=== PATIENT | female | born 1995 | race Caucasian/White ===

== ENCOUNTER 2020-02-09 05:32 | Inpatient (IN) | payer OTHER ==
[~2020-02-09] VITALS: Ht 165.1 cm; Wt 105.5 kg
[2020-02-09] VITALS (11 sets, daily range): BP systolic 115–132; BP diastolic 66–83
[2020-02-09] MEDS ORDERED: LR 1,000 ML IV SCH (06:08)
[2020-02-09] MEDS ORDERED: LACTATED RINGER'S 1000 ML IV ONE (06:15)
[2020-02-09] MEDS ORDERED: OXYTOCIN 30 UNITS IN 0.9% NaCl 500ML IV BAG (J2590) As Ordered ONE (06:17)
[2020-02-09 06:25] LABS: HEMATOCRIT 37.2 % (36.0-47.0); HEMOGLOBIN 12.8 g/dl (12.0-15.5); MEAN CORPUSCULAR HGB CONC 34.4 g/dl (32.0-36.5); MEAN CORPUSCULAR VOLUME 90.1 fl (80.0-96.0); PLATELET COUNT, AUTOMATED 324 10^3/uL (150-450); RED BLOOD COUNT 4.13 10^6/uL (4.00-5.40); WHITE BLOOD COUNT 10.8 10^3/uL (4.0-10.0)
[2020-02-09 06:50] LABS: CORD GAS HCO3 A 25.7 MEQ/L; CORD GAS O2 SAT A 20.9 %; CORD GAS PCO2 A 60.6 mmHg; CORD GAS PH A 7.245 UNITS; CORD GAS PO2 A 13.9 mmHg; CORD GAS TCO2 A 27.5 MEQ/L
[2020-02-09 06:52] LABS: CORD GAS ABE V -4.1; CORD GAS HCO3 V 22.6 MEQ/L; CORD GAS O2 SAT V 36.6 %; CORD GAS PCO2 V 46.7 mmHg; CORD GAS PH V 7.303 UNITS; CORD GAS PO2 V 18.6 mmHg; CORD GAS SBC V 19.4 MEQ/L; CORD GAS TCO2 V 24.1 MEQ/L
[2020-02-09] MEDS ORDERED: MEASLES,MUMPS,RUBELLA VACCINE INJ (MMR-II) (90707) SC SCH (07:00)
[2020-02-09] MEDS ORDERED: RHOGAM 300 MCG (1500 IU) INJ (J2790) IM SCH (07:00)
[2020-02-09] MEDS ORDERED: MOM 30ML SUSPENSION UDC PO PRN (07:00)
[2020-02-09] MEDS ORDERED: METHYLERGONOVINE MALEATE 0.2 MG TAB PO PRN (07:00)
[2020-02-09] MEDS ORDERED: ACETAMINOPHEN 500 MG TAB PO PRN (07:00)
[2020-02-09] MEDS ORDERED: DOCUSATE SODIUM 100 MG CAP PO PRN (07:00)
[2020-02-09] MEDS ORDERED: DIBUCAINE 1% OINTMENT 30GM TOP PRN (07:00)
[2020-02-09] MEDS ORDERED: OXYTOCIN DRIP 30 UNITS in IV 1 EA IV ONE (07:00)
[2020-02-09] MEDS ORDERED: ANUSOL HC CREAM 30GM TOP PRN (07:00)
[2020-02-09] MEDS ORDERED: ACETAMINOPHEN TAB 650MG DOSE (2X325MG) PO PRN (07:00)
[2020-02-09] MEDS ORDERED: OXYTOCIN INJ 10 UNITS/ML VIAL (J2590) IV ONE (07:00)
--- NOTE | 2020-02-09 07:39 | HPE ---
DATE OF ADMISSION: 02/09/2020 This lady is a 24-year-old, 1, para 0, last menstrual period (LMP) 05/09/2019, expected date of confinement (EDC) 02/19/2020 at 38 and 4 weeks of gestation admitted in active labor fully dilated. Her risk factor is her body mass index (BMI) is 30. Labs: O+. HIV negative. Hepatitis negative. RPR negative. Rubella immune. Varicella immune. Pap normal. Urine was positive. Gonorrhea and chlamydia were negative. 1-hour glucose early was 106, 28-week glucose was 102. GBS is negative. On admission, blood pressure is 119/68, respirations 18, pulse 86. On examination, she is in active labor, fully dilated, clear liquid. Delivered precipitously a live female , 6 pounds 11 ounces, 3030 grams, Apgars of 9 and 9 at one and five minutes respectively. Placenta delivered spontaneously thereafter. Three-vessel and the cord, membranes and tissues intact. The patient had a small first-degree tear which was oversewn in the usual fashion. Hemoglobin was 12.8, hematocrit 37.2 and platelets were 324. Arterial blood gas 7.24, base excess -3; venous pH 7.30, base excess -4.1. The patient and baby tolerated the procedure well.
--- NOTE | 2020-02-09 07:42 | DN ---
DATE: 02/09/2020 This lady is a 24-year-old, 1, para 0, at 38 and 4 weeks of gestation who came in, in active labor, fully dilated, and delivered a live female infant weighing 3030 grams, Apgars of 9 and 9 at one and five minutes respectively, 6 pounds 11 ounces. Arterial and venous pH were performed. Placenta delivered spontaneously thereafter. Three-vessel and the cord, membranes and tissues intact. On examination, she had a small first-degree tear in the left vaginal wall repaired in usual fashion with a 2-0 and [id number]. Uterus contracted well under Pitocin. Anterior, posterior and lateral robledo were intact. Sphincter was tight. The patient and baby tolerating the procedure well.
[2020-02-09] MEDS: PRENATAL VITAMINS CHEWABLE TABLET PO SCH (09:00)
[2020-02-09] MEDS: NAPROXEN 250 MG TAB PO SCH ×2 (09:00→21:00)
[2020-02-09] MEDS ORDERED: OXYTOCIN INJ 10 UNITS/ML VIAL (J2590) As Ordered ONE (18:09)
[2020-02-10 06:00] VITALS: BP 109/64
[2020-02-10 06:51] LABS: HEMATOCRIT 33.1 % (36.0-47.0); HEMOGLOBIN 11.3 g/dl (12.0-15.5); MEAN CORPUSCULAR HEMOGLOBIN 31.6 pg (27.0-33.0); MEAN CORPUSCULAR HGB CONC 34.1 g/dl (32.0-36.5); MEAN CORPUSCULAR VOLUME 92.5 fl (80.0-96.0); PLATELET COUNT, AUTOMATED 236 10^3/uL (150-450); RED BLOOD COUNT 3.58 10^6/uL (4.00-5.40); WHITE BLOOD COUNT 10.7 10^3/uL (4.0-10.0)
[2020-02-10 09:00] VITALS: BP 109/64
[2020-02-10] MEDS: PRENATAL VITAMINS CHEWABLE TABLET PO SCH (09:00)
[2020-02-10] MEDS: NAPROXEN 250 MG TAB PO SCH (09:00)
--- NOTE | 2020-02-10 10:09 | IPNPDOC ---
Progress Note Date of Service: Feb 10, 2020 Day#: 1 Progress Note PPD 1 SUBJECT: Joan is a 24yo [id number] s/p uncomplicated at 38+wk after presenting in active labor, having a 1mll with repair, doing well day # 1. She has been ambulating, voiding spontaneously without issue and tolerating regular diet. Breast feeding without issue. Reports lochia is like a normal vimal od. No f/c/n/v/CP/SOB. OBJECTIVE: VITAL SIGNS: Within normal limits, afebrile. Alert and oriented times three. Abdomen: Fundus firm at U-2. Soft, NTTP. Extremities: no pain with palpation of calves, trace pedal edema ASSESSMENT: Joan is a 24yo [id number] s/p uncomplicated at 38+wk after pre senting in active labor, having a 1mll with repair, doing well day # 1. Vitals within normal limits, afebrile, hemodynamically stable with no evidence of infection. PLAN: 1. Discharge to home today. 2. Tylenol and Motrin for pain. 3. Encourage breast feeding 4. Will further discuss contraception at 6wk PP visit 5. Routine PP visit in 6 weeks 6. Discussed return precautions at length. 7. No heavy lifting and vaginal rest [address] Angely Khanna MD VS, I&O, 24H, Fishbone Vital Signs/I&O Vital Signs Date Time Temp Pulse Resp B/P (MAP) Pulse Ox O2 Delivery O2 Flow Rate FiO2 02/10/20 06:00 99.2 77 18 109/64 (79) 99 Room Air I&O- Last 24 Hours up to 6 AM 02/10/20 06:00 Intake Total 2000 ml Output Total 900 ml Balance 1100 ml Laboratory Data 24H LABS Laboratory Tests 2 02/10/20 06:25: Nucleated Red Blood Cells % (auto) 0.0 CBC/BMP Laboratory Tests 02/10/20 06:25 Angely Khanna MD Feb 10, 2020 10:09
[2020-02-10] MEDS ORDERED: DOCU100C16 PO (10:10)
[2020-02-10] MEDS ORDERED: DIBU10OI TOP (10:10)
[2020-02-10] MEDS ORDERED: ACET-683 PO (10:10)
--- NOTE | 2020-02-10 10:13 | DS.PDOC ---
Discharge Summary General Date of Admission Feb 09, 2020 at 05:51 Date of Discharge Feb 10, 2020 Discharge Summary PROCEDURES PERFORMED DURING STAY: spontaneous vaginal delivery ADMITTING DIAGNOSES: 1. Active labor at term DISCHARGE DIAGNOSES: 1. Active labor at term, delivered COMPLICATIONS/CHIEF COMPLAINT: Term . HISTORY OF PRESENT ILLNESS/HOSPITAL COURSE: Joan is a 24yo [id number] s/p uncomplicated at 38+wk after presenting in active labor, having a 1mll with repair, doing well day # 1. She had a benign course. At time of discharge, vitals were within normal limits, afebrile, hemodynamically stable with no evidence of infection. DISCHARGE MEDICATIONS: Please see below. ALLERGIES: Please see below. PHYSICAL EXAMINATION ON DISCHARGE: VITAL SIGNS: Within normal limits, afebrile. Alert and oriented times three. Abdomen: Fundus firm at U-2. Soft, NTTP. Extremities: no pain with palpation of calves, trace pedal edema LABORATORY DATA: Please see below. DIET: regular DISPOSITION: home DISCHARGE PLAN/INSTRUCTIONS: 1. Discharge to home today. 2. Tylenol and Motrin for pain. 3. Encourage breast feeding 4. Will further discuss contraception at 6wk PP visit 5. Routine PP visit in 6 weeks 6. Discussed return precautions at length. 7. No heavy lifting and vaginal rest 6 weeks DISCHARGE CONDITION: Stable TIME SPENT ON DISCHARGE: Greater than [address] Angely Khanna MD Vital Signs/I&Os Vital Signs Date Time Temp Pulse Resp B/P (MAP) Pulse Ox O2 Delivery O2 Flow Rate FiO2 02/10/20 06:00 99.2 77 18 109/64 (79) 99 Room Air I&O- Last 24 Hours up to 6 AM 02/10/20 06:00 Intake Total 2000 ml Output Total 900 ml Balance 1100 ml Laboratory Data Labs 24H Laboratory Tests 2 02/10/20 06:25: Nucleated Red Blood Cells % (auto) 0.0 CBC/BMP Laboratory Tests 02/10/20 06:25 Discharge Medications Scheduled PRN Acetaminophen (Acetaminophen) 500 Mg Tablet, 1,000 MG PO Q6HP PRN for PAIN LEVEL 6-10 Dibucaine (Dibucaine) 28 Gm Oint...g., 0 DOSE TOP Q4HP PRN for PAIN Docusate Sodium (Docusate Sodium) 100 Mg Capsule, 100 MG PO QHSP PRN for CONSTIPATION Allergies Coded Allergies: No Known Allergies (Verified Allergy, Unknown, 02/09/20) Angely Khanna MD Feb 10, 2020 10:13
== END 2020-02-10 13:47 | disposition home or self-care (01) | DRG 807 ==
LOC: M LDO 05:32 → M LDI 05:51 → M OBS 17:24
PROVIDERS: ADMIT Obstetrics & Gynecology; ATTEND Obstetrics & Gynecology
PROC: 10E0XZZ Delivery of Products of Conception, External Approach (ICD-10-PCS; principal; 2020-02-09)
PROC: 0HQ9XZZ Repair Perineum Skin, External Approach (ICD-10-PCS; 2020-02-09)
DX: O70.0 First degree perineal laceration during delivery (principal); Z37.0 Single live birth; Z3A.38 38 weeks gestation of pregnancy

== ENCOUNTER 2021-03-27 08:37 | Inpatient (IN) | payer OTHER ==
[2021-03-27] VITALS (7 sets, daily range): BP systolic 130–169; BP diastolic 69–87
[~2021-03-27] VITALS: Ht 165.1 cm; Wt 100.0 kg
[~2021-03-27 08:37] MED LIST: ACET-683 PO; DIBU28OI2 TOP; DOCU100C16 PO
[2021-03-27] MEDS ORDERED: OXYTOCIN INJ 10 UNITS/ML VIAL (J2590) IM PRN (08:55)
--- NOTE | 2021-03-27 09:00 | HPEPDOC ---
Obstetrical History & Physical General Date of Admission March 27, 2021 at 08:37 History of Present Illness 25 yo at 38 weeks gestation presents to the hospital with regular contra ctions for 1 hour prior to presentation to the hospital. No leakage of fluid. no bleeding. good movement. care through [facility]. Chief Complaint: Contractions, term Information Provided By: Patient Care Care: Good Care Dating Final EDC by: LMP, 1st trimester (US) Antepartum Course Diagnos(e)s no complications Past Medical History Past Obstetrical History : Past Obstetrical History: Multigravida Past Medical History Medical History ob hx: term , 1st degree laceration med hx: none Surgical History: Denies/None Family History Significant Family History: No pertinent family hx Social History Marital Status: Family situation: Spouse/partner home Psychosocial History: No pertinent psych hx * Smoker: non-smoker Allergies Coded Allergies: No Known Allergies (Verified Allergy, Unknown, 02/09/20) Medications Scheduled PRN Acetaminophen (Acetaminophen) 500 Mg Tablet, 1,000 MG PO Q6HP PRN for PAIN LEVEL 6-10 Dibucaine (Dibucaine) 28 Gm Oint...g., 0 DOSE TOP Q4HP PRN for PAIN Docusate Sodium (Docusate Sodium) 100 Mg Capsule, 100 MG PO QHSP PRN for CONSTIPATION Physical Examination Physical Examination GENERAL: Alert and oriented times three. BREAST: . ABDOMEN: Gravid and non-tender to touch. FETUS: Is vertex (VTX) by sterile vaginal examination (SVE), fetus is vertex (VTX) by Chemo. HEART RATE: Regular rate and rhythm. LUNGS: Clear to auscultation (CTA). EXTREMITIES: No edema. No clonus. Deep tendon reflexes (DTRs) + . Pertinent Laboratoy Data Blood Type: O+ Vaginal Examination Dilation: complete Effacement: 100% Station: +1 Presentation: Cephalic presentation Assessment Variability: Moderate Accelerations: Positive Decelerations: None Tocometer Contractions: Yes Frequency: regular Assessment/Plan Assessment Pt is a 25-year-old (G)2 para (P)1 at 38+ weeks presents to Labor and Delivery in active labor. Plan Admit and orient. Ultrasonographer and consent. delivery imminent No time for IV placement Plan IM Pitocin after delivery Anticipate vaginal delivery DAVON REYES MD March 27, 2021 09:00
--- NOTE | 2021-03-27 09:11 | DNPDOC ---
[facility] Delivery Note Delivery Note DATE OF DELIVERY: March 27, 2021 PREDELIVERY DIAGNOSIS: 38-weeks' gestation and labor. POST DELIVERY DIAGNOSIS: Delivered. PROCEDURE: Spontaneous vaginal delivery. MARINE GEOLOGIST: Dr. Davon Reyes MD ANESTHESIA: none. ESTIMATED BLOOD LOSS: 300 mL. FINDINGS: 7 pound 1 ounce female infant, Score 8/9. DELIVERY SUMMARY: Patient is a 25-year-old 2 now para 2 who was admitted to labor and delivery for active labor. She had just made into the labor room bed when She pushed and began to crown. Assisted rupture of membranes performed. Pt had precipitous spontaneous vaginal delivery of a 7 lb 1 oz. female infant with no delivery anesthesia. No nuchal cord. Shoulders delivered with ease. Placenta delivered spontaneously and appeared intact. Pt received IM Pitocin after delivery. Sponge counts correct. DAVON ERYES MD March 27, 2021 09:11
[2021-03-27] MEDS ORDERED: METHYLERGONOVINE MALEATE 0.2 MG TAB PO PRN (09:30)
[2021-03-27] MEDS ORDERED: ANUSOL HC CREAM 30GM TOP PRN (09:30)
[2021-03-27] MEDS ORDERED: ACETAMINOPHEN TAB 650MG DOSE (2X325MG) PO PRN (09:30)
[2021-03-27] MEDS ORDERED: DOCUSATE SODIUM 100MG CAPSULE PO PRN (09:30)
[2021-03-27] MEDS ORDERED: IBUPROFEN 600MG TAB PO PRN (09:30)
[2021-03-27] MEDS ORDERED: ACETAMINOPHEN 500 MG TAB PO PRN (09:30)
[2021-03-27] MEDS ORDERED: IBUPROFEN 800 MG TAB PO PRN (09:30)
[2021-03-27] MEDS ORDERED: DIBUCAINE 1% OINTMENT 30GM TOP PRN (09:30)
[2021-03-27] MEDS ORDERED: MEASLES,MUMPS,RUBELLA VACCINE INJ (MMR-II) (90707) SC SCH (09:30)
[2021-03-27] MEDS ORDERED: RHOGAM 300 MCG (1500 IU) INJ (J2790) IM SCH (09:30)
[2021-03-27] MEDS ORDERED: MOM 30ML SUSPENSION UDC PO PRN (09:30)
[2021-03-27] MEDS ORDERED: OXYTOCIN INJ 10 UNITS/ML VIAL (J2590) ONE (09:56)
[2021-03-27] MEDS: SERTRALINE 100 MG TAB PO SCH (15:28)
[2021-03-28 05:59] VITALS: BP 133/77
--- NOTE | 2021-03-28 06:36 | OBDS ---
[facility] Obstetrical Discharge Sum. Obstetrical Discharge Summary Cell Operator/Provider: Prasanna Godinez MD Date: March 28, 2021 Time: 07:00 : 2 Term: 2 Pre-term: 0 Abortions: 0 Livin VDRL: Non-Reactive Rh: Positive Rubella: Immune Labor spontanous precipitous labor 1 hour Delivery live female 7 lbs 1 oz,3300 grams 8/9 intact perineum no tears uterus contracted down with Im Pitocin Infant Sex: Female Infant Weight: pounds (7lbs ), ounces (1 o) A/P, Post Course List any complications Admission diagnosis: . active labor at term Discharge diagnosis: confined Condition at Discharge: stable Discharge Instructions: [Home/other] 6 weeks pp [place] [facility] Activity: att Diet: pooja Medications: dispensed at [place] Follow-up: [facility] Other: Prasanna Godinez MD March 28, 2021 06:36
[2021-03-28] MEDS ORDERED: IBUP-1022 PO (06:40)
[2021-03-28] MEDS ORDERED: ZOLO100T PO (06:40)
[2021-03-28] MEDS ORDERED: PRENATAL VITAMINS CHEWABLE TABLET PO SCH (09:00)
[2021-03-28] MEDS: SERTRALINE 100 MG TAB PO SCH (09:53)
[2021-03-28 10:20] LABS: HEMATOCRIT 34.7 % (36.0-47.0); HEMOGLOBIN 11.4 g/dl (12.0-15.5); MEAN CORPUSCULAR HEMOGLOBIN 30.4 pg (27.0-33.0); MEAN CORPUSCULAR HGB CONC 32.9 g/dl (32.0-36.5); MEAN CORPUSCULAR VOLUME 92.5 fl (80.0-96.0); PLATELET COUNT, AUTOMATED 266 10^3/uL (150-450); RED BLOOD COUNT 3.75 10^6/uL (4.00-5.40); WHITE BLOOD COUNT 10.3 10^3/uL (4.0-10.0)
== END 2021-03-28 17:25 | disposition home or self-care (01) | DRG 807 ==
LOC: M LDI 08:37 → M OBS 12:32
PROVIDERS: ADMIT Obstetrics & Gynecology; ATTEND Obstetrics & Gynecology
PROC: 10E0XZZ Delivery of Products of Conception, External Approach (ICD-10-PCS; principal; 2021-03-27)
PROC: 10907ZC Drainage of Amniotic Fluid, Therapeutic from Products of Conception, Via Natural or Artificial Opening (ICD-10-PCS; 2021-03-27)
DX: O62.3 Precipitate labor (principal); Z37.0 Single live birth; Z3A.38 38 weeks gestation of pregnancy